=== PATIENT | female | born 1950 | race Caucasian/White ===

== ENCOUNTER 2018-02-22 11:55 | Emergency (ER) | payer OTHER ==
[~2018-02-22] VITALS: Ht 172.7 cm; Wt 85.7 kg
[2018-02-22 12:11] LABS: ABSOLUTE BASOPHIL COUNT 0.1 /CUMM (0.0-0.2); ABSOLUTE EOSINOPHIL COUNT 0.2 /CUMM (0.0-0.7); ABSOLUTE GRANULOCYTE CT 6.8 /CUMM (1.4-6.5); ABSOLUTE LYMPH COUNT 1.9 /CUMM (1.2-3.4); ABSOLUTE MONOCYTE COUNT 0.3 /CUMM (0.10-0.60); BASOPHIL % 0.7 % (0.0-2.0); EOSINOPHIL % 1.8 % (0-5); GRANULOCYTE % 73.8 % (42.2-75.2); HEMATOCRIT 45.3 % (37-47); MEAN CORPUSCULAR HGB 35.2 PG (27.0-31.0); MEAN CORPUSCULAR HGB CONC 34.9 G/DL (33.0-37.0); MEAN CORPUSCULAR VOLUME 100.9 FL (81.0-99.0); MEAN PLATELET VOLUME 7.3 FL (7.4-10.4); PLATELET COUNT 236 /CUMM (130-400); RBC DISTRIBUTION WIDTH 12.8 % (11.5-14.5); WHITE BLOOD CELL COUNT 9.2 /CUMM (4.8-10.8)
--- NOTE | 2018-02-22 13:47 | ED GI/GU/ABDOMINAL COMPLAINT ---
History of Present Illness General Chief Complaint: Nausea, Vomiting, Diarrhea Stated Complaint: N/V/D X 1 WEEK Source: patient, old records Exam Limitations: no limitations Vital Signs & Intake/Output Vital Signs & Intake/Output Vital Signs Date Time Temp Pulse Resp B/P B/P Pulse O2 O2 Flow FiO2 Mean Ox Delivery Rate 02/22 1645 98.8 67 18 130/60 98 Room Air 02/22 1415 98.6 58 20 133/68 97 Room Air 02/22 1202 97.6 82 18 164/77 98 Room Air Allergies Coded Allergies: Sulfa (Sulfonamide Antibiotics) (Severe, RASH 02/22/18) Reconcile Medications Aspirin (Aspirin*) 81 MG TAB.CHEW 1 TAB PO DAILY HEART HEALTH (Reported) Bifidobacterium Infantis (Align) 4 MG (1 BILLION CELL) CAPSULE 1 CAP PO DAILY GI (Reported) Dicyclomine HCl 10 MG CAPSULE 1 CAP PO TID PRN ABOMINAL PAIN Fish Oil/Dha/Epa (Fish Oil 1,200 MG Fish Oil) 1,200 MG-144 MG-216 MG CAPSULE 1 CAP PO DAILY VITAMIN SUPPORT (Reported) Lisinopril/Hydrochlorothiazide (Lisinopril-Hctz 20-12.5 MG Tab) 20 MG-12.5 MG TABLET 1 TAB PO DAILY HEART (Reported) Mesalamine (Lialda) 1.2 GRAM TABLET.DR 2 TAB PO DAILY GI (Reported) Mesalamine (Canasa) 1,000 MG SUPP.RECT 1 SUP RC QPM PRN GI (Reported) Multivitamin (Daily Multiple Vitamin) 1 EACH TABLET 1 TAB PO DAILY VITAMIN SUPPORT (Reported) Ondansetron (Zofran Odt) 4 MG TAB.RAPDIS 1 TAB SL TID PRN NAUSEA Polyethylene Glycol 3350 (Miralax) 17 GRAM POWD.PACK 1 PAC PO DAILY PRN GI ( Reported) dissolve in water Pravastatin Sodium (Pravachol) 40 MG TABLET 1 TAB PO DAILY CHOLESTEROL ( Reported) Triage Note: 67 YO FEMALE TO TRIAGE FOR EVAL OF NVD. HX OF COLITIS. STATES PAIN IN ABD IS CRAMPING IN NATURE. DENIES URIANRY S/S. Triage Nurses Notes Reviewed? yes ? N Is pt currently ? No Onset: Gradual Duration: week(s): Timing: recent history Quality/Severity: moderate, sharpness Location: generalized abdomen HPI: 67YO female with hx of ulcerative colitis, HTN presents to ED complaining of nausea, vomiting, diarrhea x 1 week. Patient states that initially she had bloody diarrhea, she states this is typical for her UC. 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 She states that nausea, vomiting, diarrhea and persistent, patient has not been able to tolerate PO x 2 days. Reports generalized abdominal pains which are intermittent, sharp. She states that she typically has low abdominal pains with her UC flares however currently is having upper and lower abd pains which is new. Patient denies fevers, chills, urinary symptoms, hematemesis, sick contacts, recent travel. (Danielle Palacios) Past History Travel History Traveled to [place] past 21 day No Medical History Any Pertinent Medical History? see below for history Neurological: NONE EENT: NONE Cardiovascular: hypertension, hyperlipidemia Respiratory: NONE Gastrointestinal: colitis Hepatic: NONE Renal: NONE Musculoskeletal: NONE Psychiatric: NONE Endocrine: NONE Blood Disorders: NONE Cancer(s): NONE MACHINE ICER/Reproductive: NONE Surgical History Surgical History: non-contributory Psychosocial History What is your primary language Turkish Tobacco Use: Never used Family History Hx Contributory? No (Danielle Palacios) Review of Systems Review of Systems Constitutional: Reports: no symptoms. EENTM: Reports: no symptoms. Respiratory: Reports: no symptoms. Cardiovascular: Reports: no symptoms. GI: Reports: see HPI. Genitourinary: Reports: no symptoms. Musculoskeletal: Reports: no symptoms. Skin: Reports: no symptoms. Neurological/Psychological: Reports: no symptoms. Hematologic/Endocrine: Reports: no symptoms. Immunologic/Allergic: Reports: no symptoms. All Other Systems: Reviewed and Negative (Danielle Palacios) Physical Exam Physical Exam General Appearance: well developed/nourished, no apparent distress, alert, awake Head: atraumatic, normal appearance Eyes: Bilateral: normal appearance. Ears, Nose, Throat, Mouth: hearing grossly normal Neck: normal inspection, supple, full range of motion Respiratory: normal breath sounds, no respiratory distress, lungs clear Cardiovascular: regular rate/rhythm Gastrointestinal: normal bowel sounds, soft, no organomegaly, MILD diffuse tenderness without gaurding or rebound Back: normal inspection, normal range of motion Extremities: normal range of motion Neurologic/Psych: awake, alert, oriented x 3 Skin: intact, normal color, warm/dry Core Measures ACS in differential dx? No Sepsis Present: No Sepsis Focused Exam Completed? No (Zahida LANDERS,Danielle Bang) Progress Differential Diagnosis: appendicitis, bowel obstruction, diverticulitis, gastritis, hernia, inflamm bowel dis, pancreatitis, SBO, colitis, gastroenteritis Plan of Care: Orders Procedure Date/time Status URINALYSIS 02/23 1156 Active LIPASE 02/23 1156 Complete LACTIC ACID 02/23 1156 Complete COMPREHENSIVE METABOLIC PANEL 02/22 115 Complete CBC WITHOUT DIFFERENTIAL 02/23 1156 Complete Laboratory Tests 02/22/18 1456: Lactic Acid Cancelled 02/22/18 1204: Anion Gap 7, Estimated GFR > 60, BUN/Creatinine Ratio 31.3 H, Glucose 122 H, Lactic Acid 1.1, Calcium 9.4, Total Bilirubin 0.8, AST 30, ALT 42, Alkaline Phosphatase 76, Total Protein 6.7, Albumin 4.2, Globulin 2.5, Albumin/Globulin Ratio 1.7, Lipase 39, CBC w Diff NO MAN DIFF REQ, RBC 4.50, MCV 100.9 H, MCH 35.2 H, MCHC 34.9, RDW 12.8, MPV 7.3 L, Gran % 73.8, Lymphocytes % 20.1 L, Monocytes % 3.6, Eosinophils % 1.8, Basophils % 0.7, Absolute Granulocytes 6.8 H, Absolute Lymphocytes 1.9, Absolute Monocytes 0.3, Absolute Eosinophils 0.2, Absolute Basophils 0.1 CT scan is stable, no acute findings to explain the patient's current symptoms. Patient reports improvement in her symptoms following IV meds. Patient has stable labs, she is afebrile. She is unable to give a urine or stool sample here in the ED. Patient was sent home with lab slip for stool sammple. Patient given prescriptions for her symptoms. She was encouraged to follow up with her GI specialist. Patient agrees with the plan of care. Discussed findings with Dr. Coles who agrees with this plan. No fever or leukocytosis, low suspicion for acute bacterial infectious etiology at this time. Diagnostic Imaging: Viewed by Me: CT Scan. Discussed w/RAD: CT Scan. Radiology Impression: PATIENT: AMI RIOS PRESENT AGE: 67 PATIENT ACCOUNT NO: [id number] : 48 LOCATION: [facility] ORDERING PHYSICIAN: Danielle LANDERS SERVICE DATE: 02/22/189552 EXAM TYPE: CAT - CT ABD & PELVIS W IV CONTRAST EXAMINATION: CT ABDOMEN AND PELVIS WITH CONTRAST CLINICAL INFORMATION: Nausea, vomiting, diarrhea and generalized abdominal pain. Evaluate for colitis, bowel obstruction, hernia or diverticulitis. COMPARISON: Abdomen ultrasound, 05/20/2017 TECHNIQUE: Multidetector volumetric imaging was performed of the abdomen and pelvis following IV administration of 95 mL of Optiray 320 intravenous contrast. Sagittal and coronal reformatted images were obtained on the technologist's workstation. DLP: 537 mGy-cm FINDINGS: LUNG BASES: Unremarkable. No basilar consolidation or pleural effusion. LIVER, GALLBLADDER, AND BILIARY TREE: Diffuse hepatic steatosis. No evidence of hepatic mass or intrahepatic bile duct dilatation. Gallbladder is surgically absent. PANCREAS: Unremarkable. SPLEEN: Unremarkable. ADRENAL GLANDS: Unremarkable. KIDNEYS AND URETERS: The kidneys have normal size, shape, and attenuation. 0.3 x 0.6 cm calculus within the lower pole of the left kidney. No hydronephrosis or perinephric edema. The ureters are unremarkable. BLADDER: Unremarkable. BOWEL AND PERITONEUM: Stomach is unremarkable. Bowel loops are normal in caliber. There is a duodenal diverticulum adjacent to the pancreatic head. The appendix is normal. The colon, which contains a mild amount fecal material and fluid, is underdistended. No evidence of colonic wall edema or pericolonic fat stranding. Mild diverticulosis of the sigmoid colon without diverticulitis. No ascites or pneumoperitoneum. ABDOMINAL WALL: Minimal protrusion of fat into the umbilicus. LYMPH NODES: No pathologic sized lymph nodes in the abdomen or pelvis. No inguinal lymphadenopathy. VASCULAR: Atherosclerosis of the abdominal aorta without aneurysm. PELVIC: The uterus is unremarkable. No pelvic mass or free fluid. Multiple phleboliths are seen within the lower pelvis. MUSCULOSKELETAL: Chondrocalcinosis and multilevel disc degeneration of the spine. Also, chondrocalcinosis and mild osteoarthrosis of the hips. No aggressive osseous lesions. IMPRESSION: - Diffuse hepatic steatosis. - No acute findings along the gastrointestinal tract. No evidence of bowel obstruction. Mild diverticulosis of the sigmoid colon without diverticulitis. - Nonobstructing, 0.3 x 0.6 calculus of the left kidney. DICTATED BY: Tommy Mccormack MD DATE/TIME DICTATED:02/22/181499 TAPE CALENDER:RAO DATE/TIME TRANSCRIBED:02/22/181499 CONFIDENTIAL, DO NOT COPY WITHOUT APPROPRIATE AUTHORIZATION. <Electronically signed in Other Vendor System> SIGNED BY: Tommy Mccormack MD 02/22/18 1513 Initial ED EKG: none (Danielle Palacios) Departure Departure Disposition: HOME OR SELF CARE Condition: Stable Clinical Impression Primary Impression: Nausea vomiting and diarrhea Secondary Impressions: Abdominal pain Qualifiers: Abdominal location: generalized Qualified Code: R10.84 - Generalized abdominal pain Referrals: Abdulaziz Philippe MD (PCP/Family) Additional Instructions: Take zofran and bentyl as prescribed. Follow up with your GI doctor. Bring stool sample to the lab with lab slip. Return with worsening symptoms or concerns. Please note that there might be incidental findings in your evaluation that are unrelated to the current emergency department visit. Please notify your primary care doctor about this emergency department visit in order to obtain and review all of the testing performed so that these incidental findings can be monitored as needed. If you had an x-ray performed, please understand that some fractures may not be seen on the initial set of x-rays. If your symptoms persist you might need a repeat set of x-rays to check for such a fracture. If you had a laceration evaluated, please understand that foreign bodies such as glass or wood may not be visible to the naked eye or on plain x-rays. If the wound becomes red, swollen, increasingly more painful or if there is any drainage from the wound, please have it reevaluated by a physician for the possibility of a retained foreign body. If you're unable to follow up as outlined in the discharge instructions please return to the emergency department. Thank you for choosing the [facility] for your care. It was a pleasure to serve you today. Departure Forms: Customer Survey General Discharge Information Prescriptions: Current Visit Scripts Dicyclomine HCl 1 CAP PO TID PRN ABOMINAL PAIN #30 CAP Ondansetron (Zofran Odt) 1 TAB SL TID PRN NAUSEA #10 TAB (Danielle Palacios) PA/LOG TUMBLER Co-Sign Statement Statement: ED Attending supervision documentation- [] I saw and evaluated the patient. I have also reviewed all the pertinent lab results and diagnostic results. I agree with the findings and the plan of care as documented in the PA's/LOG TUMBLER's documentation. [X] I have reviewed the ED Record and agree with the PA's/LOG TUMBLER's documentation. [] Additions or exceptions (if any) to the PAs/LOG TUMBLER's note and plan are summarized below: [] (Sanket LEZAMA,Jett Parrish)
[2018-02-22] MEDS ORDERED: LISINOPRIL-HCT1 EACH PO (14:40)
[2018-02-22] MEDS ORDERED: PRAVACHOL40 M1 PO (14:41)
[2018-02-22] MEDS ORDERED: LIALDA1.2 G1 PO (14:41)
[2018-02-22] MEDS ORDERED: FISH OIL 1,2001 EACH PO (14:42)
[2018-02-22] MEDS ORDERED: ASPIRIN81 M4 PO (14:42)
[2018-02-22] MEDS ORDERED: DAILY MULTIPLE1 EACH PO (14:42)
[2018-02-22] MEDS ORDERED: ALIGN4 M1 PO (14:43)
[2018-02-22] MEDS ORDERED: CANASA1000 M1 RC (14:43)
[2018-02-22] MEDS ORDERED: MIRALAX17 G1 PO (14:43)
--- NOTE | 2018-02-22 15:13 | CT SCAN REPORT ---
EXAMINATION: CT ABDOMEN AND PELVIS WITH CONTRAST CLINICAL INFORMATION: Nausea, vomiting, diarrhea and generalized abdominal pain. Evaluate for colitis, bowel obstruction, hernia or diverticulitis. COMPARISON: Abdomen ultrasound, 05/20/2017 TECHNIQUE: Multidetector volumetric imaging was performed of the abdomen and pelvis following IV administration of 95 mL of Optiray 320 intravenous contrast. Sagittal and coronal reformatted images were obtained on the technologist's workstation. DLP: 537 mGy-cm FINDINGS: LUNG BASES: Unremarkable. No basilar consolidation or pleural effusion. LIVER, GALLBLADDER, AND BILIARY TREE: Diffuse hepatic steatosis. No evidence of hepatic mass or intrahepatic bile duct dilatation. Gallbladder is surgically absent. PANCREAS: Unremarkable. SPLEEN: Unremarkable. ADRENAL GLANDS: Unremarkable. KIDNEYS AND URETERS: The kidneys have normal size, shape, and attenuation. 0.3 x 0.6 cm calculus within the lower pole of the left kidney. No hydronephrosis or perinephric edema. The ureters are unremarkable. BLADDER: Unremarkable. BOWEL AND PERITONEUM: Stomach is unremarkable. Bowel loops are normal in caliber. There is a duodenal diverticulum adjacent to the pancreatic head. The appendix is normal. The colon, which contains a mild amount fecal material and fluid, is underdistended. No evidence of colonic wall edema or pericolonic fat stranding. Mild diverticulosis of the sigmoid colon without diverticulitis. No ascites or pneumoperitoneum. ABDOMINAL WALL: Minimal protrusion of fat into the umbilicus. LYMPH NODES: No pathologic sized lymph nodes in the abdomen or pelvis. No inguinal lymphadenopathy. VASCULAR: Atherosclerosis of the abdominal aorta without aneurysm. PELVIC: The uterus is unremarkable. No pelvic mass or free fluid. Multiple phleboliths are seen within the lower pelvis. MUSCULOSKELETAL: Chondrocalcinosis and multilevel disc degeneration of the spine. Also, chondrocalcinosis and mild osteoarthrosis of the hips. No aggressive osseous lesions. IMPRESSION: - Diffuse hepatic steatosis. - No acute findings along the gastrointestinal tract. No evidence of bowel obstruction. Mild diverticulosis of the sigmoid colon without diverticulitis. - Nonobstructing, 0.3 x 0.6 calculus of the left kidney.
[2018-02-22] MEDS ORDERED: DICYCLOMINE HCL10 M1 PO (16:36)
[2018-02-22] MEDS ORDERED: ZOFRAN ODT4 M1 SL (16:36)
[2018-02-22 16:45] VITALS: BP 130/60
== END 2018-02-22 16:55 ==
LOC: ERH 11:55
PROVIDERS: Physician Assistant
DX: R11.2 Nausea with vomiting, unspecified (principal); R19.7 Diarrhea, unspecified; R10.84 Generalized abdominal pain; I10 Essential (primary) hypertension; Z79.82 Long term (current) use of aspirin
CPT/HCPCS: 74177; 96372; 96374; 96375; J0131; J0500; J2405